=== PATIENT | male | born 1985 | race Caucasian/White ===

== ENCOUNTER 2018-04-29 15:34 | Emergency (ER) | payer BC, SELFPAY ==
--- NOTE | 2018-04-29 15:58 | RAD ---
CHEST TWO VIEWS: 04/29/18 COMPARISON: None. HISTORY: Shortness of breath for three to four days and runny nose. Cough. FINDINGS: Two views of the chest show normal sized cardiomediastinal silhouette. There is no evidence of consol idation, mass, or pleural effusion. The bones are unremarkable. IMPRESSION: No evidence of acute cardiopulmonary disease. POS: [facility]
[2018-04-29] MEDS ORDERED: predniSONE 20 MG TAB ONE (17:03)
== END 2018-04-29 17:18 | disposition home or self-care (01) ==
LOC: ERS 15:34
DX: J20.9 Acute bronchitis, unspecified (principal); F17.210 Nicotine dependence, cigarettes, uncomplicated
CPT/HCPCS: 71046; 94640; J7506; J7620